=== PATIENT | female | born 1990 | race African-American/Black ===

== ENCOUNTER 2016-05-28 10:37 | Emergency (ER) | payer MEDICAID ==
[~2016-05-28] VITALS: Ht 149.9 cm; Wt 64.0 kg
[2016-05-28] MEDS ORDERED: SODIUM CHLORIDE 0.9% 1,000 ML IV ONE (11:23)
[2016-05-28] MEDS ORDERED: KETOROLAC 30MG/ML VIAL IV STA (11:23)
[2016-05-28 11:58] LABS: BASOPHILS % 0.7 % (0.0-2.0); DIFFERENTIAL COMMENT 0; EOSINOPHILS % 0.7 % (0.0-5.0); HEMATOCRIT. 35.2 % (36.0-48.0); HEMOGLOBIN. 11.4 g/dL (12.0-16.0); LYMPHOCYTES % 32.1 % (20.0-50.0); MEAN CORPUSCULAR HEMOGLOBIN 25.6 pg (28.0-32.0); MEAN CORPUSCULAR HGB CONC 32.4 g/dL (31.0-37.0); MEAN CORPUSCULAR VOLUME 79.1 fL (81.0-99.0); MONOCYTES % 9.6 % (2.0-8.0); NEUTROPHILS % 56.9 % (40.0-76.0); PLATELET 247 x1000/uL (130-400); RED BLOOD CELL COUNT 4.45 mill/uL (4.2-5.4); RED CELL DISTRIBUTION WIDTH 13.1 % (11.6-14.6); WHITE BLOOD COUNT 5.1 x1000/uL (4.5-11.0)
[2016-05-28 12:02] LABS: PARTIAL THROMBOPLASTIN TIME 27.9 sec (24.0-34.0); PROTHROMBIN TIME 10.7 sec
[2016-05-28 12:08] LABS: ALANINE AMINOTRANSFERASE 12 IU/L (13-61); ALBUMIN 3.9 g/dL (3.4-5.0); ANION GAP 13; CALCIUM 9.1 mg/dL (8.5-10.1); CARBON DIOXIDE 28 mEq/L (21-32); CHLORIDE 102 mEq/L (98-107); INDEX HEMOLYSI 1 (1-3); INDEX ICTERIC 1 (1-4); INDEX LIPEMIC 1 (1-3); UREA NITROGEN BLOOD 11 mg/dL (7-21); eGFR > 60 mL/min (>60)
[2016-05-28 12:10] LABS: TROPONIN I < 0.02 ng/mL (0.00-0.04)
[2016-05-28 12:15] LABS: THYROID STIMULATING HORMONE 0.14 uIU/mL (0.36-3.74)
[2016-05-28 14:29] LABS: CLARITY URINE CLOUDY (CLEAR); GLUCOSE URINE NEGATIVE (NEGATIVE); KETONES URINE NEGATIVE (NEGATIVE); LEUKOCYTE ESTERASE URINE TRACE (NEGATIVE); NITRITE URINE NEGATIVE (NEGATIVE); OCCULT BLOOD URINE 3+ (NEGATIVE); PROTEIN URINE NEGATIVE (NEGATIVE); SPECIFIC GRAVITY URINE 1.012 (1.005-1.030); UROBILINOGEN URINE 0.2 E.U./dL (0.2-1.0)
[2016-05-28 14:34] LABS: COLOR URINE BLOODY (YELLOW)
[2016-05-28 14:48] VITALS: BP 113/77
[2016-05-28 14:48] LABS: RBC URINE TNTC /hpf (0-2); SQUAMOUS EPITHELIAL CELL URINE FEW /lpf (RARE/1+)
[2016-05-28 14:49] LABS: BACTERIA URINE TRACE
[2016-05-28 14:50] LABS: WBC URINE 0-2 /hpf (0-2)
== END 2016-05-28 15:04 | disposition home or self-care (01) ==
LOC: ER 12:03
DX: N93.8 Other specified abnormal uterine and vaginal bleeding (principal); R94.6 Abnormal results of thyroid function studies; R07.89 Other chest pain
CPT/HCPCS: 36415; 71010; 80053; 81001; 81025; 84443; 84484; 85025; 85610; 85730; 93005; 96361; 96374; 99285; J1885; Z7610; J7030

== ENCOUNTER 2017-03-21 07:45 | Emergency (ER) | payer BC, MEDICAID ==
[~2017-03-21] VITALS: Ht 149.9 cm; Wt 69.0 kg
[2017-03-21] MEDS ORDERED: SODIUM CHLORIDE 0.9% 1,000 ML IV ONE (11:01)
[2017-03-21 11:16] LABS: CLARITY URINE CLEAR (CLEAR); COLOR URINE YELLOW (YELLOW); KETONES URINE NEGATIVE (NEGATIVE); LEUKOCYTE ESTERASE URINE NEGATIVE (NEGATIVE); NITRITE URINE NEGATIVE (NEGATIVE); OCCULT BLOOD URINE NEGATIVE (NEGATIVE); PROTEIN URINE NEGATIVE (NEGATIVE); SPECIFIC GRAVITY URINE 1.025 (1.005-1.030); UROBILINOGEN URINE 0.2 E.U./dL (0.2-1.0)
[2017-03-21 11:31] LABS: BASOPHILS % 0.7 % (0.0-2.0); EOSINOPHILS % 0.8 % (0.0-5.0); HEMATOCRIT. 37.6 % (36.0-48.0); HEMOGLOBIN. 12.2 g/dL (12.0-16.0); LYMPHOCYTES % 25.5 % (20.0-50.0); MEAN CORPUSCULAR HEMOGLOBIN 23.7 pg (28.0-32.0); MEAN CORPUSCULAR VOLUME 73.1 fL (81.0-99.0); MEAN PLATELET VOLUME 9.6 fl (7.4-10.4); MONOCYTES % 12.3 % (2.0-8.0); NEUTROPHILS % 60.7 % (40.0-76.0); PLATELET 286 x1000/uL (130-400); RED BLOOD CELL COUNT 5.14 mill/uL (4.2-5.4); RED CELL DISTRIBUTION WIDTH 16.9 % (11.6-14.6)
[2017-03-21 11:54] LABS: CHLORIDE 99 mEq/L (98-107)
[2017-03-21 12:01] LABS: B-HCG QUANTITATIVE 8414 mIU/mL (<3)
[2017-03-21 12:31] VITALS: BP 124/79
== END 2017-03-21 12:34 | disposition home or self-care (01) ==
LOC: ER 08:07
DX: H66.90 Otitis media, unspecified, unspecified ear (principal); R51 Headache; Z93.3 Colostomy status; Z32.01 Encounter for pregnancy test, result positive
CPT/HCPCS: 36415; 80053; 81003; 81025; 84702; 85025; 87804; 99284; J7030; Z7610

== ENCOUNTER 2017-05-22 07:54 | Emergency (ER) | payer BC ==
[~2017-05-22] VITALS: Ht 147.3 cm; Wt 67.0 kg
[2017-05-22 11:40] LABS: BASOPHILS % 0.3 % (0.0-2.0); EOSINOPHILS % 0.7 % (0.0-5.0); HEMATOCRIT. 36.1 % (36.0-48.0); HEMOGLOBIN. 11.8 g/dL (12.0-16.0); LYMPHOCYTES % 15.7 % (20.0-50.0); MEAN CORPUSCULAR HEMOGLOBIN 24.6 pg (28.0-32.0); MEAN PLATELET VOLUME 10.4 fl (7.4-10.4); MONOCYTES % 5.7 % (2.0-8.0); NEUTROPHILS % 77.6 % (40.0-76.0); PLATELET 237 x1000/uL (130-400); RED BLOOD CELL COUNT 4.81 mill/uL (4.2-5.4); RED CELL DISTRIBUTION WIDTH 15.8 % (11.6-14.6)
[2017-05-22] MEDS ORDERED: ACETAMINOPHEN 325MG TABLET PO ONE (11:45)
[2017-05-22 11:49] LABS: CHLORIDE 103 mEq/L (98-107)
[2017-05-22 13:03] LABS: CLARITY URINE CLEAR (CLEAR); COLOR URINE YELLOW (YELLOW); KETONES URINE NEGATIVE (NEGATIVE); LEUKOCYTE ESTERASE URINE NEGATIVE (NEGATIVE); NITRITE URINE NEGATIVE (NEGATIVE); OCCULT BLOOD URINE NEGATIVE (NEGATIVE); PH URINE 8.5 (4.5-8.0); PROTEIN URINE NEGATIVE (NEGATIVE); SPECIFIC GRAVITY URINE 1.019 (1.005-1.030); UROBILINOGEN URINE 0.2 E.U./dL (0.2-1.0)
[2017-05-22 13:28] LABS: B-HCG QUANTITATIVE 36880 mIU/mL (<3)
[2017-05-22 13:49] VITALS: BP 103/50
== END 2017-05-22 13:50 | disposition home or self-care (01) ==
LOC: ER 08:07
DX: O20.0 Threatened abortion (principal); Z3A.15 15 weeks gestation of pregnancy; Z93.3 Colostomy status
CPT/HCPCS: 36415; 76805; 76830; 80053; 80307; 81003; 81025; 84702; 85025; 86850; 86900; 99285

== ENCOUNTER 2017-09-29 09:06 | Emergency (ER) | payer BC, MEDICAID ==
[~2017-09-29] VITALS: Ht 144.8 cm; Wt 71.0 kg
[2017-09-29 11:30] VITALS: BP 98/57
== END 2017-09-29 12:19 | disposition home or self-care (01) ==
LOC: ER 09:23
DX: R07.89 Other chest pain (principal)
CPT/HCPCS: 71045; 81025; 93005; 99284; Z7610

== ENCOUNTER 2018-02-15 10:47 | Emergency (ER) | payer MEDICAID, BC ==
[~2018-02-15] VITALS: Ht 147.3 cm; Wt 71.3 kg
[2018-02-15 12:40] VITALS: BP 110/68
== END 2018-02-15 12:43 | disposition home or self-care (01) ==
LOC: ER 10:47
DX: J18.9 Pneumonia, unspecified organism (principal); Z98.890 Other specified postprocedural states; Z93.3 Colostomy status
CPT/HCPCS: 71045; 99283

== ENCOUNTER 2021-12-24 11:06 | Emergency (ER) | payer BC, MEDICAID ==
[~2021-12-24] VITALS: Ht 144.8 cm; Wt 68.0 kg
[2021-12-24 11:09] VITALS: BP 115/64
== END 2021-12-24 17:05 | disposition left against medical advice (07) ==
LOC: ER 11:07
DX: Z53.21 Procedure and treatment not carried out due to patient leaving prior to being seen by health care provider (principal)
CPT/HCPCS: 93005

== ENCOUNTER 2022-03-28 11:39 | Emergency (ER) | payer MEDICAID ==
[~2022-03-28] VITALS: Ht 144.8 cm; Wt 74.0 kg
[2022-03-28 11:46] VITALS: BP 110/77
[2022-03-28] MEDS ORDERED: AMOX-494 MT (14:40)
[2022-03-28] MEDS ORDERED: DEXAMETHASONE 4MG TABLET PO ONE (14:45)
== END 2022-03-28 15:56 | disposition home or self-care (01) ==
LOC: ER 11:39
DX: J02.8 Acute pharyngitis due to other specified organisms (principal); R73.03 Prediabetes
CPT/HCPCS: 99283; J8540